=== PATIENT | male | born 1955 | race Caucasian/White ===

== ENCOUNTER 2019-01-28 15:28 | Emergency (ER) | payer BC, SELFPAY ==
[2019-01-28 15:39] VITALS: BP 161/92; PULSE 86; RESP 16; TEMP 37; O2SAT 99; BMI 31.6
--- NOTE | 2019-01-28 15:39 | ED.URI ---
HPI - URI/Sore Throat General Chief Complaint: Upper Respiratory Symptoms Stated Complaint: states abcess on his tonsil sent by walk in Time Seen by Provider: 01/28/19 15:38 Source: patient Mode of arrival: ambulatory Limitations: no limitations History of Present Illness HPI Narrative: Patient is a 63-year-old male who presents with sore throat ongoing for the last 3 days. He said it is painful to swallow but he is able to do it. In fact he had multiple drinks today is broad including Colin tea and a naked juice to drink. He said he was quite fatigued and tired yesterday in fact he took a nap which is out of the norm for him. He has no other symptoms no shortness of breath chest pain abdominal pain neck pain headache. he denies any voice changing or hoarseness He was sent here from the walk-in clinic for peritonsillar abscess. MD Complaint: sore throat Related Data Previous Rx's Medication Instructions Recorded amoxicillin 500 mg PO BID #14 cap 01/28/19 prednisone 10 mg PO DAILY #10 tab 01/28/19 Allergies Allergy/AdvReac Type Severity Reaction Status Date / Time No Known Drug Allergies Allergy Verified 01/28/19 15:39 Review of Systems Review of Systems ROS Unobtainable: All systems reviewed & are unremarkable except as noted in HPI and below Constitutional Denies chills, Denies fever(s), Denies headache(s), Denies lethargy and Denies weakness Eyes Denies change in vision, Denies eye discharge, Denies irritation and Denies loss of vision ENT Ears, Nose, Mouth, and Throat: Reports as per HPI, Denies headache(s), Denies hoarseness, Denies neck pain and Reports sore throat Cardiovascular Denies chest pain, Denies irregular heart rhythm, Denies lightheadedness, Denies palpitations, Denies dyspnea, Denies dyspnea on exertion and Denies orthopnea Respiratory Denies cough, Denies dyspnea, Denies dyspnea on exertion and Denies wheezing Gastrointestinal Gastrointestinal: Denies abdominal pain, Denies change in bowel habits, Denies diarrhea, Denies nausea and Denies vomiting Genitourinary Denies hematuria, Denies flank pain, Denies urinary incontinence and Denies urinary urgency Musculoskeletal Denies neck pain Integumentary/Breasts Denies pruritus, Denies erythema, Denies rash and Denies wounds Neurologic Denies headache(s), Denies loss of vision and Denies weakness Endocrine Denies palpitations Allergic/Immunologic Denies wheezing [facility] Medical History Patient denies significant medical history (Acute) Social History Smoking Status: Never smoker Social History Smoking Status: Never smoker Exam Initial Vital Signs Initial Vital Signs: Vital Signs Temperature 98.6 F 01/28/19 15:39 Pulse Rate 86 01/28/19 15:39 Respiratory Rate 16 01/28/19 15:39 Blood Pressure 161/92 H 01/28/19 15:39 Pulse Oximetry 99 01/28/19 15:39 GENERAL: Well-appearing, well-nourished and in no acute distress. HEENT: Head atraumatic,EOMI, pupils reactive PHARYNX: Erythema left tonsil swelling with white spots. No hoarse voice airway patent no stridor CARDIOVASCULAR: Regular rate and rhythm without murmurs, rubs or gallops. RESPIRATORY: Breath sounds equal bilaterally, no wheezes rales or rhonchi. ABDOMEN: Soft, nontender. Normoactive bowel sounds all 4 quadrants. No guarding or rebound. EXTREMITIES: Normal range of motion, no clubbing or edema. Neurovascularly intact NEUROLOGICAL: Alert and oriented x4. SKIN: Warm, dry, no laceration, no petechiae, no rashes or lesions. Course Orders Ordered: Discontinued Medications Dexamethasone (Decadron) 10 mg PO NOW ONE Stop: 01/28/19 15:47 Last Admin: 01/28/19 15:49 Dose: 10 mg Vital Signs - 8 hr 01/28/19 15:39 01/28/19 16:20 Temperature 98.6 F Pulse Rate 86 85 Respiratory Rate 16 14 Blood Pressure 161/92 H 141/83 H Pulse Oximetry 99 100 MDM - URI/Sore Throat Lab Data Attestation: I reviewed the patient's lab results. Point of Care Testing Rapid Strep A Negative MDM Narrative Medical decision making narrative: Patient is tolerating his own secretions he has no hoarse voice all overall does not appear toxic or septic. This time he got 1 dose steroids started on antibiotics. I sent home with steroids as well. Discussed very specifically sinus syndrome and to return to the ED. Discharge Plan Departure Patient Disposition: Home Clinical Impression: Strep pharyngitis Discharge Date/Time: 01/28/19 16:20 Interventions: ED Discharge Assessment Last Done: 01/28/19 16:20 Instructions: DI for Strep Throat Activity Restrictions/Additional Instructions: *You have been diagnosed with strep, possible peritonsillar abscess *What to do: Increase fluid intake do not get dehydrated *Continue to take medications as directed -->Faxed to [facility] Prednisone 40 mg once daily for 5 days Amoxacillin 500 mg 2 times a day for 7 days *Follow up with your primary care provider in 2-3 days --call [phone] for a new PCP *Return to ER if you should have increased difficulty breathing, not tolerating fluids or any new, worsening or concerning symptoms Prescriptions: New amoxicillin 500 mg capsule 500 mg PO BID Qty: 14 RF: 0 prednisone 20 mg tablet 10 mg PO DAILY Qty: 10 RF: 0
[2019-01-28] MEDS: DEXAMETHASONE 10 MG/ML VIAL PO (15:49)
[2019-01-28 16:20] VITALS: BP 141/83; PULSE 85; RESP 14; O2SAT 100
== END 2019-01-28 16:20 | disposition home or self-care (01) ==
PROVIDERS: Emergency Provider Emergency Medicine
DX: J02.0 Streptococcal pharyngitis (principal)
CPT/HCPCS: 87880; 99282; 99283; J1100

== ENCOUNTER → 2022-04-10 08:30 | Outpatient (CLI) | payer BC, SELFPAY ==
[2022-04-10 09:32] LABS: Add Manual Diff / Slide Review NO; Basophils Absolute Auto 0 /uL (0-100); Basophils Percent Auto 0.5 % (0-2); Eosinophils Absolute Auto 300 /uL (0-450); Eosinophils Percent Auto 5.7 % (2-4); Hematocrit 48.4 % (41-53); Hemoglobin 16.4 g/dL (13.5-17.5); Lymphocytes Absolute Auto 1300 /uL (1100-4500); Lymphocytes Percent Auto 22.8 % (25-40); Mean Corpuscular HGB Conc 33.9 % (30-36); Mean Corpuscular Hemoglobin 31.2 PG (26-34); Mean Corpuscular Volume 92.1 fL (80-100); Monocytes Absolute Auto 700 /uL (0-900); Monocytes Percent Auto 12.5 % (3-14); Neutrophils Absolute Auto 3300 /uL (1500-7000); Neutrophils Percent Auto 58.5 % (50-75); Platelet Count 125 X10^3/uL (150-400); Red Blood Cell Count 5.25 X10^6/uL (4.5-5.9); Red Cell Distribution Width 13.8 % (11.6-14.8); White Blood Cell Count 5.7 X10^3/uL (4.5-11.0)
[2022-04-10 10:40] LABS: Alanine Aminotransferase 46 IU/L (<50); Albumin 4.3 g/dL (3.5-5.0); Albumin Globulin Ratio 1.8 (1.0-2.8); Alkaline Phosphatase 53 U/L (38-126); Aspartate Aminotransferase 26 IU/L (17-59); BUN Creatinine Ratio 16.9 (6-22); Bilirubin Total 0.5 mg/dL (0.2-1.3); Blood Urea Nitrogen 14 mg/dL (9-20); Calcium 8.8 mg/dL (8.4-10.2); Carbon Dioxide 26 mmol/L (22-32); Chloride 106 mmol/L (98-107); Cholesterol 236 mg/dL (140-199); Estimated Glomerular Filt Rate > 60 mL/min (>60); Globulin 2.4 g/dL (1.7-4.1); Glucose 104 mg/dL (80-110); HDL Cholesterol 42 mg/dL (40-60); HEMOLYSIS < 15 (0-50); LDL Cholesterol Calculated 173 mg/dL (<100); Potassium 4.4 mmol/L (3.4-5.1); Sodium 140 mmol/L (137-145); Total Protein 6.7 g/dL (6.3-8.2); Triglycerides 105 mg/dL (35-150)
[2022-04-10 11:14] LABS: Prostate Specific Antigen Scrn 4.22 ng/mL (0.1-4.0)
[2022-04-10 15:34] LABS: Hep C Virus Ab w/Reflex Quant NEGATIVE s/c (NEGATIVE)
== END ==
PROVIDERS: PCP Family Medicine; Referring Provider Family Medicine; Visit Provider Family Medicine
DX: E66.9 Obesity, unspecified (principal); H93.19 Tinnitus, unspecified ear; L72.9 Follicular cyst of the skin and subcutaneous tissue, unspecified; Z11.59 Encounter for screening for other viral diseases; Z68.30 Body mass index [BMI] 30.0-30.9, adult; R05.2 Subacute cough; Z12.5 Encounter for screening for malignant neoplasm of prostate
CPT/HCPCS: 36415; 80053; 80061; 85025; 86803; G0103

== ENCOUNTER → 2022-04-16 14:16 | Outpatient (CLI) | payer BC, SELFPAY ==
--- NOTE | 2022-04-16 14:17 | DI.RAD.S_ITS ---
PROCEDURE: XR CHEST 2V INDICATIONS: chronic cough TECHNIQUE: 2 views of the chest were acquired. COMPARISON: None. FINDINGS: Surgical changes and devices: None. Lungs and pleura: Peribronchial mild hazy opacities. No pleural effusions. Mediastinum: Mediastinal contours are normal. Heart size is normal. Bones and chest wall: No suspicious bony abnormalities. Soft tissues appear unremarkable. IMPRESSION: Mild peribronchial hazy opacities could represent bronchitis. No airspace consolidation identified. Dictated by: Wang Guzman M.D. on 04/16/2022 at 15:24 Approved by: Wang Guzman M.D. on 04/16/2022 at 15:27
== END ==
PROVIDERS: PCP Family Medicine; Referring Provider Family Medicine; Visit Provider Family Medicine
DX: R05.3 Chronic cough (principal)
CPT/HCPCS: 71046

== ENCOUNTER → 2022-12-03 10:29 | Outpatient (CLI) | payer BC, SELFPAY ==
[2022-12-03 11:19] LABS: Cholesterol 256 mg/dL (140-199); HDL Cholesterol 39 mg/dL (40-60); LDL Cholesterol Calculated 186 mg/dL (<100); Triglycerides 154 mg/dL (35-150)
[2022-12-10 17:25] LABS: Prostate Specific Antigen Scrn 3.41 ng/mL (0.1-4.0)
== END ==
PROVIDERS: PCP Family Medicine; Referring Provider Family Medicine; Visit Provider Family Medicine
DX: D69.6 Thrombocytopenia, unspecified (principal); E78.5 Hyperlipidemia, unspecified; R97.20 Elevated prostate specific antigen [PSA]; Z12.5 Encounter for screening for malignant neoplasm of prostate
CPT/HCPCS: 36415; 80061; G0103

== ENCOUNTER → 2024-07-06 07:58 | Outpatient (CLI) | payer BC, SELFPAY ==
[2024-07-06 08:36] LABS: Add Manual Diff / Slide Review NO; Basophils Absolute Auto 0 /uL (0-100); Basophils Percent Auto 0.3 % (0-2); Eosinophils Absolute Auto 100 /uL (0-450); Eosinophils Percent Auto 2.1 % (2-4); Hematocrit 50.5 % (41-53); Hemoglobin 17.1 g/dL (13.5-17.5); Lymphocytes Absolute Auto 1800 /uL (1100-4500); Mean Corpuscular HGB Conc 33.8 % (30-36); Mean Corpuscular Hemoglobin 31.6 PG (26-34); Mean Corpuscular Volume 93.6 fL (80-100); Monocytes Absolute Auto 800 /uL (0-900); Monocytes Percent Auto 10.8 % (3-14); Neutrophils Absolute Auto 4300 /uL (1500-7000); Neutrophils Percent Auto 61.8 % (50-75); Platelet Count 142 X10^3/uL (150-400)
[2024-07-06 08:54] LABS: Alanine Aminotransferase 36 IU/L (<50); Albumin 3.7 g/dL (3.5-5.0); Albumin Globulin Ratio 1.4 (1.0-2.8); Alkaline Phosphatase 56 U/L (38-126); Aspartate Aminotransferase 23 IU/L (17-59); BUN Creatinine Ratio 20.9 (6-22); Blood Urea Nitrogen 19 mg/dL (9-20); Calcium 9.3 mg/dL (8.4-10.2); Carbon Dioxide 25 mmol/L (22-32); Chloride 106 mmol/L (98-107); Cholesterol 127 mg/dL (140-199); Estimated Glomerular Filt Rate > 60 mL/min (>60); Globulin 2.7 g/dL (1.7-4.1); Glucose 101 mg/dL (80-110); HDL Cholesterol 35 mg/dL (40-60); HEMOLYSIS < 15 (0-50); LDL Cholesterol Calculated 74 mg/dL (<100); Potassium 4.2 mmol/L (3.4-5.1); Sodium 136 mmol/L (137-145); Total Protein 6.4 g/dL (6.3-8.2); Triglycerides 91 mg/dL (35-150)
== END ==
PROVIDERS: PCP Family Medicine; Referring Provider Family Medicine; Visit Provider Family Medicine
DX: D69.6 Thrombocytopenia, unspecified (principal); E78.2 Mixed hyperlipidemia
CPT/HCPCS: 36415; 80053; 80061; 85025

== ENCOUNTER → 2025-04-16 09:12 | Outpatient (CLI) | payer BC, SELFPAY ==
[2025-04-16 10:06] LABS: COVID-19 CEPHEID 4-PLEX PCR Negative (Negative); Influenza A - CEPHEID Flu A NEGATIVE (NEGATIVE); Influenza B - CEPHEID Flu B NEGATIVE (NEGATIVE)
== END ==
PROVIDERS: PCP Family Medicine; Visit Provider Family Medicine
DX: R05.1 Acute cough (principal)
CPT/HCPCS: 87637